=== PATIENT | female | born 1980 | race Two or more races ===

== ENCOUNTER 2023-02-06 08:54 | Outpatient (CLI) | payer SELFPAY | END 2023-02-06 08:55 | disposition home or self-care (01) | PROVIDERS: Visit Provider Family Medicine | DX: D64.9 Anemia, unspecified (principal); E66.01 Morbid (severe) obesity due to excess calories; R03.0 Elevated blood-pressure reading, without diagnosis of hypertension; R79.89 Other specified abnormal findings of blood chemistry; R53.83 Other fatigue | CPT/HCPCS: 80053; 82607; 82728 ==

== ENCOUNTER 2023-02-06 09:43 | Outpatient (CLI) | payer SELFPAY ==
--- NOTE | 2023-02-06 10:15 | CRLHL7_ITS ---
For Patients: As a result of the Century Cures Act, medical imaging exams and procedure reports are released immediately into your electronic medical record. You may view this report before your referring provider. If you have questions, please contact your health care provider. INDICATION: Soft tissue Disorder TECHNIQUE: Ultrasound venous duplex lower right extremity. Compression venous exam was performed using fregoso-scale, color Doppler, and spectral Doppler imaging. COMPARISON: None. FINDINGS: Sonographic imaging demonstrates the right common femoral, deep femoral, superficial femoral, popliteal, posterior tibial and greater saphenous and the contralateral left common femoral veins to be fully compressible with normal color Doppler blood flow. Within the mid calf there are small superficial varicose veins. IMPRESSION: Normal right lower extremity venous ultrasound, no sign of deep venous thrombosis. Minimal superficial varicosities within the calf veins. No evidence of significant superficial thrombophlebitis. Dictated by Sesar Clark MD @ 02/06/2023 10:59:25 AM (Electronically Signed)
== END 2023-02-06 09:44 | disposition home or self-care (01) ==
LOC: US 09:47
PROVIDERS: PCP Family Medicine; Visit Provider Family Medicine
DX: M79.89 Other specified soft tissue disorders (principal); I83.91 Asymptomatic varicose veins of right lower extremity
CPT/HCPCS: 93971

== ENCOUNTER 2023-06-09 15:26 | Outpatient (CLI) | payer OTHER, SELFPAY ==
--- OUTSIDE RECORDS SUMMARY | 2023-06-09 15:31 | XMS_ITS | Clinical Summary ---
Author Name Unknown Organization [employer] [facility] [employer] Address [place], [place] [address] Care Team Providers Care Patient Scheduling Manager Name Role Phone Pcp, No Primary Care Provider Unavailabl e Allergies Active Allergy Reactions Criticality Noted Date Comments Aspirin, Buffered Angioedema 08/18/2006 Penicillins Angioedema 11/17/2006 Medications No known medications Active Problems Problem Noted Date Diagnosed Date Vitamin D deficiency 08/13/2009 Unspecified hypothyroidism 08/18/2006 Resolved Problems Problem Noted Date Diagnosed Date Resolved Date Supervision of other normal 09/05/2009 07/18/2011 Routine follow-up 01/16/2007 08/29/2008 Immunizations Name Administration Dates Next Due Influenza, IIV3 (Age 6-35 mos) 02/01/2010 Influenza, IIV3 (Age >=3 years) 03/23/2013,02/01,03/10/2008,02/15/2006 Influenza, IIV4 04/21/2019 Tdap 04/21/2019,04/11/2008 Family History Medical History Relation Name Comments Good Health Father Diabetes Maternal Grandmother Good Health Mother Relation Name Status Comments Father Alive Maternal Grandmother Mother Alive Son 1 Mady Alive Son 2 Rafi Alive Social History Tobacco Use Types Packs/Day Years Used Date Smoking Tobacco: Former Cigarettes Q uit: 05/18/2005 Smokeless Tobacco: Never Tobacco Cessation:Counseling Given: Yes Alcohol Use Standard Drinks/Week Comments No 0 (1 standard drink = 0.6 oz pur e alcohol) PHQ-2 Answer Date Recorded PHQ-2 Score 1 04/21/2019 Social Connections Answer Date Recorded Frequency of Communication with Friends and Fami ly Not on file 05/18/2021 Financial Resource Strain Answer Date R ecorded Difficulty of Paying Living Expenses Not on file 05/18/2021 Difficulty of Paying Living Expenses Not on file 05/18/2021 Sex and Gender Information Value Date Recorded Sex Assigned at Not on file Gender Identity Not on file Sexual Orientation Not on file Obstetrics History Para Term AB IAB SAB Ectopic Multiple Livin g Live Births 4 3 3 3 3 Date Outcome GA Total Labor Labor/2nd/3rd Weight Sex Delivery Anes PTL Roselyn A1 A5 Name Cl in Comments:System Genera marycarmen. Please review and update details. 10/08 Term 38w 0d 5h 00m/ 4 kg (8 lb 13.1 oz) M Vag Shana ng mady 04/19 Term 38w 0d 5h 00m/ 3.49 kg (7 lb 11 oz) M Vag Shana ng carito david 11/24 Term 42w 0d 24h 00m/ F Vag Shana ng Tj la Last Filed Vital Signs Vital Sign Reading Time Taken Comments Blood Pressure 132/77 06/28/2020 10:09 AM PEST CONTROL SERVICE TECHNICIAN Pulse 76 06/28/2020 10:09 AM PEST CONTROL SERVICE TECHNICIAN Temperature 37.3 ??C (99.2 ??F) 06/28/2020 10:[address] Respiratory Rate - - Oxygen Saturation 100% 06/28/2020 10:09 AM PEST CONTROL SERVICE TECHNICIAN Inhaled Oxygen Concentration - - Weight 109.3 kg (241 lb) 06/28/2020 10:09 AM PEST CONTROL SERVICE TECHNICIAN Height 159.2 cm (5' 2.68) 04/21/2019 8:09 AM CS T Body Mass Index 43.13 04/21/2019 8:09 AM PEST CONTROL SERVICE TECHNICIAN Plan of Treatment Health Maintenance Due Date Last Done Comments COVID-19 vaccine series (#1) 01/08/1979 Hepatitis C screening for age 18-79 1996 BMI (ht and wt on same day) for age 18+ 04/21/2020 04/21/2019 Depression screening for age 12+ 04/21/2020 04/21/2019 Influenza for age 9-49 01/16/2023 9, 03/23/2013, 02/01/2010, Additional history exists Pap test for age 21-65 02/18/2028 3, 02/17/2023, 04/21/2019, Additional history exists Tetanus booster 04/21/2029 04/21/2019, 04/11/2008 HIV for age 15-65 Completed 08/21/2009 Tdap Completed 04/21/2019, 04/11/2008 Pneumococcal series for age 6-64 Aged Out No longer eligible based on patient's age to complete this topic Care Teams Patient Scheduling Manager Relationship Specialty Start Date End Date Pcp, No . PCP - General 10/06/21
--- NOTE | 2023-06-09 15:40 | CRLHL7_ITS ---
For Patients: As a result of the Century Cures Act, medical imaging exams and procedure reports are released immediately into your electronic medical record. You may view this report before your referring provider. If you have questions, please contact your health care provider. BILATERAL SCREENING MAMMOGRAM WITH COMPUTER-AIDED DETECTION AND TOMOSYNTHESIS TECHNIQUE: CC and MLO views were obtained. These mammographic images have been obtained using full-field digital technique. These mammographic images were interpreted with the benefit of computer-aided detection. Breast Tomosynthesis was used in this interpretation. COMPARISON FILM: 04/21/19. FINDINGS: There are scattered areas of fibroglandular density. IMPRESSION: There is no radiographic evidence for malignancy. ASSESSMENT: BI-RADS Category 1: Negative RECOMMENDATION: Routine screening mammogram in 1 year. A lay language report of this examination will be provided to the patient. Rubén Lopez M.D. Diagnostic Radiologist [email or web address] SP/Dictated by: Rubén Lopez MD @ 06/12/2023 12:04:00 PM (Electronically Signed)
== END 2023-06-09 15:27 | disposition home or self-care (01) ==
PROVIDERS: Visit Provider Advanced Practice Midwife
DX: Z12.31 Encounter for screening mammogram for malignant neoplasm of breast (principal)
CPT/HCPCS: 77063; 77067; T1013

== ENCOUNTER 2023-08-19 11:00 | Outpatient (CLI) | payer OTHER, SELFPAY | END 2023-08-19 11:01 | disposition home or self-care (01) | PROVIDERS: Visit Provider Obstetrics & Gynecology | DX: N92.0 Excessive and frequent menstruation with regular cycle (principal); Z13.29 Encounter for screening for other suspected endocrine disorder | CPT/HCPCS: 81001; 84439; 84443; 87086 ==

== ENCOUNTER 2023-08-27 13:04 | Outpatient (CLI) | payer OTHER, SELFPAY | END 2023-08-27 13:05 | disposition home or self-care (01) | PROVIDERS: PCP Obstetrics & Gynecology; Visit Provider Obstetrics & Gynecology | DX: R79.89 Other specified abnormal findings of blood chemistry (principal) | CPT/HCPCS: 84439; 84443 ==

== ENCOUNTER 2023-12-15 10:35 | Outpatient (CLI) | payer OTHER, SELFPAY ==
--- OUTSIDE RECORDS SUMMARY | 2023-12-15 10:49 | XMS_ITS | Clinical Summary ---
Author Organization [employer] [facility] Address [place], [place] [address] Care Team Providers Care Block Paver Name Role Phone Pcp, No Primary Care [...] Outcome GA Total Labor Labor/2nd/3rd Weight Sex Type Anes PTL Roselyn A1 A5 Name Clin Comments:System Genera marycarmen. Please review and update details. 000 Term 38w 0d 5h 00m/ 4 kg (8 lb 13.1 oz) M Vag Livin g mady 002 Term 38w 0d 5h 00m/ 3.49 kg (7 lb 11 oz) M Vag Livin g gabrie l 007 Term 42w 0d 24h 00m/ F Vag Livin g Camill a Last Filed Vital Signs Vital Sign Reading Time Taken Comments Blood Pressure 132/77 06/28/2020 10:09 AM JIG OPERATOR Pulse 76 06/28/2020 10:09 AM JIG OPERATOR Temperature 37.3 ??C (99.2 ??F) 06/28/2020 10:[address] Respiratory Rate - - Oxygen Saturation 100% 06/28/2020 10:09 AM JIG OPERATOR Inhaled Oxygen Concentration - - Weight 109.3 kg (241 lb) 06/28/2020 10:09 AM JIG OPERATOR Height 159.2 cm (5' 2.68) 04/21/2019 8:09 AM CS T Body Mass Index 43.13 04/21/2019 8:09 AM JIG OPERATOR Plan of Treatment Health Maintenance Due Date Last Done Comments Hepatitis C screening for age 18-79 1996 BMI (ht and wt on same day) for age 18+ 04/21/2020 04/21/2019 Depression screening for age 12+ 04/21/2020 04/21/2019 COVID-19 vaccine series ( season) 2023 Colonoscopy through age 75 2023 Mammogram for age 45-75 2023 04/21/2019 Influenza for age 9-49 01/17/2024 9, 03/23/2013, 02/01/2010, Additional history exists Lipids for age 45-75 04/21/2024 04/21/2019, 05/20/2013, 01/09/2009, Additional history exists Pap test for age 21-65 02/18/2028 3, 02/17/2023, 04/21/2019, Additional history exists Tetanus booster 04/21/2029 04/21/2019, 04/11/2008 HIV for age 15-65 Completed 08/21/2009 Tdap Completed 04/21/2019, 04/11/2008 Pneumococcal series for age 6-64 Aged Out No longer eligible based on patient's age to complete this topic Procedures Procedure Name Priority Date/Time Associated Diagnosis Comments HPV THIN PREP Routine 02/17/2023 1:45 PM CDT XR MAMMO TOMY BILAT DIAG Routine 04/21/2019 2:26 PM JIG OPERATOR Breast pain, right Breast lump LIPID PANEL W REFLEX MEASURED LDL Routine 04/21/2019 8:45 AM JIG OPERATOR Screening for lipid disorders ANTI HIV 1/2 Routine 08/21/2009 10:31 AM CDT Supervision of other normal from Last 3 Months or Most Recently Relevant to Health Maintenance Results * HPV HIGH RISK (02/17/2023 1:45 PM CDT) TYPE 16 Negative Negative 02/21/2023 7:05 AM CDT [facility] LAB[facility] TYPE 18 Negative Negative 02/21/2023 7:05 AM CDT [facility] LAB[facility]ORY OTHER HIGH RISK TYPES Negative Negative 02/21/2023 7:05 AM CDT [facility] TR[facility] LAB[facility]ORY Other (Cervical) 02/17/2023 1:45 PM CDT 02/18/2023 4:24 PM CDT Narrative [facility] LAB[facility]-CENTRAL LABORATORY - 02/21/2023 7:05 AM CDT HPV types 16, 18, 31, 33, 35, 39, 45, 51, 52, 56, 58, 59, 66 and 68 DNA were undetectable or below the pre-set threshold. Methodology: Lisa Darcie 4800 HPV Test Jenniffer MURPHY MICROBIOLOGY [facility] LAB[facility]-CENTRAL LABORATORY [address] [place] [address], [place] * XR MAMMO TOMY BILAT DIAG (04/21/2019 2:26 PM JIG OPERATOR) Anatomical Region Laterality Modality BREASTS, Breast Left, Breast Right Bilateral Mammography Impressions 04/25/2019 9:48 AM JIG OPERATOR No mammographic or sonographic findings for malignancy. Further management of the patient's breast pain and lump should be based clinically. Results and recommendations were discussed with the patient via an lieutenant shift supervisor. BI-RADS Category 2: Benign Dictated by: Flakita Orozco MD @04/21/2019 3:18:43 PM / CRL:[email or web address] Narrative 04/25/2019 9:48 AM JIG OPERATOR DIGITAL DIAGNOSTIC BILATERAL MAMMOGRAM USING TOMOSYNTHESIS, 04/21/2019 RIGHT BREAST ULTRASOUND, 04/21/2019 HISTORY: RIGHT lump and pain. FINDINGS: Breast density is scattered fibroglandular densities. ??No suspicious masses or calcification. ?? Ultrasound performed of the RIGHT breast 11 o'clock position and surrounding breast tissue demonstrates normal underlying glandular tissue. Julissa Go PA MAMMO * LIPID PANEL W REFLEX MEASURED LDL (04/21/2019 8:45 AM JIG OPERATOR) CHOLESTEROL,TOTAL 173 100 - 199 mg/dL 04/21/2019 2:34 PM JIG OPERATOR [facility] LABORATORY-[facility] TRAL LABORATORY TRIGLYCERIDES 106 <150 mg/dL 04/21/2019 2:34 PM JIG OPERATOR [facility] HDL CHOLESTEROL 52 >40 mg/dL 9 2:34 PM JIG OPERATOR [facility] TRAL LABORATORY NON-HDL CHOLESTEROL 121 <145 mg/dl 04/21/2019 2:34 PM JIG OPERATOR [facility] TRAL LABORATORY CHOL/HDL RATIO 3.33 <4.50 04/21/2019 2:34 PM [facility] TRAL LABORATORY LDL CHOLESTEROL 100 <=130 mg/dL 04/21/2019 2:34 PM [facility] TRAL LABORATORY PROVIDER ORDERED STATUS RANDOM 04/21/2019 2:34 PM JIG OPERATOR [facility] TRAL LABORATORY Blood BLOOD SPECIMEN / Unknown Venipuncture / Unknown 04/21/2019 8:45 AM JIG OPERATOR 04/21/2019 8:49 AM JIG OPERATOR Julissa MILLAN CHEMISTRY [facility] LABORATORY-CENTRAL LABORATORY [address] [place] [address], * HIV (08/21/2009 10:31 AM CDT) ANTI HIV 1/2 Non-reacti ve [facility] Blood specimen (specimen) BLOOD SPECIMEN / Unknown 08/21/2009 10:31 AM CDT 08/21/2009 10:25 AM CDT Darshana Gardiner NP SEND OUTS [facility] LABORATORY INTERNAL ZIP [address] [place] [address] from Last 3 Months or Most Recently Relevant to Health Maintenance Care Teams Block Paver Relationship Specialty Start Date End Date Pcp, No . PCP - General 10/06/21
== END 2023-12-15 10:36 | disposition home or self-care (01) ==
PROVIDERS: Visit Provider Obstetrics & Gynecology
DX: D64.9 Anemia, unspecified (principal); E66.01 Morbid (severe) obesity due to excess calories; R30.0 Dysuria; N93.9 Abnormal uterine and vaginal bleeding, unspecified
CPT/HCPCS: 84439; 84443; 86376; 87086

== ENCOUNTER 2024-01-19 08:24 | Outpatient (CLI) | payer OTHER, SELFPAY ==
--- OUTSIDE RECORDS SUMMARY | 2024-01-20 05:54 | XMS_ITS | Clinical Summary ---
Author Organization [email or web address] [facility] Address [place], [place] [address] Care Team Providers Care Classification Counselor Name Role Phone Pcp, No Primary Care [...] Comments Blood Pressure 132/77 06/28/2020 10:09 AM CAD SPECIALIST Pulse 76 06/28/2020 10:09 AM CAD SPECIALIST Temperature 37.3 ??C (99.2 ??F) 06/28/2020 10:[address] Respiratory Rate - - Oxygen Saturation 100% 06/28/2020 10:09 AM CAD SPECIALIST Inhaled Oxygen Concentration - - Weight 109.3 kg (241 lb) 06/28/2020 10:09 AM CAD SPECIALIST Height 159.2 cm (5' 2.68) 04/21/2019 8:09 AM CS T Body Mass Index 43.13 04/21/2019 8:09 AM CAD SPECIALIST Plan of Treatment Health Maintenance Due Date [...] TOMY BILAT DIAG Routine 04/21/2019 2:26 PM CAD SPECIALIST Breast pain, right Breast lump LIPID PANEL W REFLEX MEASURED LDL Routine 04/21/2019 8:45 AM CAD SPECIALIST Screening for lipid disorders ANTI HIV 1/2 Routine 08/21/2009 10:31 AM CDT Supervision of other normal from Last 3 Months or Most Recently Relevant to Health Maintenance Results * HPV HIGH RISK (02/17/2023 1:45 PM CDT) TYPE 16 Negative Negative 02/21/2023 7:05 AM CDT [facility] TR[facility] LABORATORY TYPE 18 Negative Negative 02/21/2023 7:05 AM CDT [facility] TRAL LABORATORY OTHER HIGH RISK TYPES Negative Negative 02/21/2023 7:05 AM CDT [facility] TRAL LABORATORY Other (Cervical) 02/17/2023 1:45 PM CDT 02/18/2023 4:24 PM CDT Narrative [facility] LABORATORY-CENTRAL LABORATORY - 02/21/2023 7:05 AM CDT HPV types 16, 18, 31, 33, 35, 39, 45, 51, 52, 56, 58, 59, 66 and 68 DNA were undetectable or below the pre-set threshold. Methodology: Lisa Darcie 4800 HPV Test Jenniffer MURPHY MICROBIOLOGY [facility] LAB[facility]-CENTRAL LABORATORY [address] [place] [address], [place] * XR MAMMO TOMY BILAT DIAG (04/21/2019 2:26 PM CAD SPECIALIST) Anatomical Region Laterality Modality BREASTS, Breast Left, Breast Right Bilateral Mammography Impressions 04/25/2019 9:48 AM CAD SPECIALIST No mammographic or sonographic findings for malignancy. Further management of the patient's breast pain and lump should be based clinically. Results and recommendations were discussed with the patient via an hourly sign language interpreter. BI-RADS Category 2: Benign Dictated by: Flakita Orozco MD @04/21/2019 3:18:43 PM / CRL:elio Narrative 04/25/2019 9:48 AM CAD SPECIALIST DIGITAL DIAGNOSTIC BILATERAL MAMMOGRAM USING TOMOSYNTHESIS, 04/21/2019 RIGHT BREAST ULTRASOUND, 04/21/2019 HISTORY: RIGHT lump and pain. FINDINGS: Breast density is scattered fibroglandular densities. ??No suspicious masses or calcification. ?? Ultrasound performed of the RIGHT breast 11 o'clock position and surrounding breast tissue demonstrates normal underlying glandular tissue. Julissa Go PA MAMMO * LIPID PANEL W REFLEX MEASURED LDL (04/21/2019 8:45 AM CAD SPECIALIST) CHOLESTEROL,TOTAL 173 100 - 199 mg/dL 04/21/2019 2:34 PM CAD SPECIALIST [facility] LABORATORY-[facility] TRAL LABORATORY TRIGLYCERIDES 106 <150 mg/dL 04/21/2019 2:34 PM CAD SPECIALIST [facility] HDL CHOLESTEROL 52 >40 mg/dL 9 2:34 PM CAD SPECIALIST [facility] TRAL LABORATORY NON-HDL CHOLESTEROL 121 <145 mg/dl 04/21/2019 2:34 PM CAD SPECIALIST [facility] TRAL LABORATORY CHOL/HDL RATIO 3.33 <4.50 04/21/2019 2:[address] [facility] TRAL LABORATORY LDL CHOLESTEROL 100 <=130 mg/dL 04/21/2019 2:[address] [facility] TRAL LABORATORY PROVIDER ORDERED STATUS RANDOM 04/21/2019 2:34 PM CAD SPECIALIST [facility] TRAL LABORATORY Blood BLOOD SPECIMEN / Unknown Venipuncture / Unknown 04/21/2019 8:45 AM CAD SPECIALIST 04/21/2019 8:49 AM CAD SPECIALIST Julissa MILLAN CHEMISTRY [facility] LABORATORY-CENTRAL LABORATORY [address] [place] [address], * HIV (08/21/2009 10:31 AM CDT) ANTI HIV 1/2 Non-reacti ve [facility] Blood specimen (specimen) BLOOD SPECIMEN / Unknown 08/21/2009 10:31 AM CDT 08/21/2009 10:25 AM CDT Darshana Gardiner NP SEND OUTS [facility] LABORATORY INTERNAL ZIP [address] [place] [address] from Last 3 Months or Most Recently Relevant to Health Maintenance Care Teams Classification Counselor Relationship Specialty Start Date End Date Pcp, No . PCP - General 10/06/21
== END 2024-01-19 08:25 | disposition home or self-care (01) ==
LOC: NFLDREF 01-20 05:52
PROVIDERS: Visit Provider Obstetrics & Gynecology
DX: E03.9 Hypothyroidism, unspecified (principal)
CPT/HCPCS: 84443

== ENCOUNTER 2024-01-21 09:22 | Outpatient (CLI) | payer OTHER, SELFPAY ==
--- OUTSIDE RECORDS SUMMARY | 2024-01-21 09:30 | XMS_ITS | Data Portability ---
Author Organization [facility] Address [address] [place] [address] [place] [address] Assessment Encounter Date Assessment Date Assessment LastModified by Organization Details LastModified Time 03/12/2023 03/12/2023 1. Anemia - check FOBT - pelvic ultrasound (menorrhagia most likely source), plan pending results - continue iron supplementation 2. Skin lesion - will obtain pathology records from recent biopsy, plan pending these results [email or web address] Not available 03/12/2023 12:14:02 06/25/2023 06/25/2023 - trial of Terbinafine for onychomycosis - A1C given risk factors - repeat Hgb - recommend daily walks for circulation and weight management - Gynecology referral for thickened endometrium, polyp + menorrhagia/anemia - repeat FOBT in 6 months when NOT menstruating chintan Not available 06/25/2023 14:02:36 Plan of Treatment Reminders Order Date Submit Date Provider Last Modified By Organization Details Last Modified Time Details Appointments None recorde d. Lab magnesi um, serum or plasma 2022 023 TRISTEN Not available 4 00:38:36 CBC w/ auto diff 2023 024 TRISTEN Not available 4 15:41:04 HbA1c (hemogl obin A1c), blood 2023 024 TRISTEN Not available 4 15:42:15 Referral communi health worker georgie mak 2023 024 [email or web address] Not available 4 09:01:36 gynecol ogist georgie mak - Dr. Ellen gonzalez at [facility] please 2023 024 Not available 4 17:04:38 Procedures None recorde d. Surgeries None recorde d. Imaging US, pelvis, complet e 2022 023 TRISTEN Not available 4 00:44:54 Medication Orders terbina fine HCl 250 mg tablet 2023 024 [email or web address] Not available 4 16:32:10 Patient TargetsNo targets recorded. Patient InstructionsNo instructions recorded. Reason for Referral Chief Lending Officer Referral for Ab normal uterine bleeding due to endometrial polyp Referring Physician: Clarissa Bustillos [facility], Encounter Date: 03/31/2023 Community Health Worker Refe rral for Increased blood pressure Referring Physician: Clarissa Bustillos [facility], Encounter Date: 06/25/2023 Chief Lending Officer Referral for En dometrium thickened Dr. Rosario at [facility] please Referring Physician: Clarissa Bustillos [facility], Encounter Date: 06/25/2023 Results Created Date Observation Date Name Description Value Unit Range Abnormal Flag Note LastModifiedBy Organization Detail LastModifiedTime 06/05/19 24 03/16/2023 , mylene carrizales ete No observ ation record ed. [email or web address] Not Available 00:45:09 Result Notes None recorded. Problems Name Problem SNOMED Code Status Onset Date Resolution Date Notes Provider Name and Address Organization Details Recorded Time Microcytic anemia 415913493 Active 2023 Clarissa Bustillos MD [address] [facility] [place], [address], [employer] 4 11:30:55 Onychomycosis 616027858 Active 2023 MD Giorgio Ramirez [facility] [place], [address], Happy [employer] 4 11:31:19 Increased blood pressure 73901399 Active 2023 MD Giorgio Ramirez [facility] [place], [address], [place] [employer] 4 11:32:33 Endometrium thickened 027707816 Active 2023 [place] [address] [place] [address], [address], [facility] 4 11:32:50 Problem Notes None recorded. Procedures Surgical History Date Name Laterality Status Provider Name and Address Organization Details Recorded Time 0 Tubal [place] [address] [place] [address], [address], [facility] 03/12/2023 11:43:06 Imaging Results Imaging Date Name Status LastModified by Organiz ation Details LastModified Time 03/16/2023 US, pelvis, complete completed [email or web address] Information not available 06/05/2023 00:45:09 Procedure Notes None recorded. Medical Equipment None Reported. Medications Name Sig Start Date Stop Date Status Note LastModified by Organization Details LastModified Time terbinafine HCl 250 mg tablet TAKE ONE TABLET BY MOUTH EVERY DAY active Not Available Not Available No t Available Vitals Date Recorded Body weight Body mass index (BMI) Body height Body temperature Respiratory rate Heart rate Oxygen saturation Oxygen saturation in Arterial blood by Pulse oximetry Systolic blood pressure Diastolic blood pressure Provider Name and Address Organization Details Last Updated DateTime 3 567104. 1 g 38.3 kg/m2 162.56 cm 97.5 [degF] 22 /min 74 /min 98 % 98 % 141 mm[Hg] 78 mm[Hg] [facility]nott [facility] 3 11:33:09 Date Recorded Body height Body mass index (BMI) Body weight Heart rate Systolic blood pressure Diastolic blood pressure Provider Name and Address Organization Details Last Updated DateTime 4 162.56 cm 41.7 kg/m2 464579. 95 g 79 /min 134 mm[Hg] 85 mm[Hg] Clarissa Bustillos MD [address] [place], [address], [facility] 4 13:50:47 Social History Question Answer Notes LastModified by Organizat ion Details LastModified Time Tobacco Smoking Status Never Smoker Clarissa Bustillos MD [address] [place], [address], [facility] 03/12/2023 12:05:20 What Is Your Level Of Alcohol Consumption? None Information not available 03/12/2023 Are You Currently Employed? Yes Information not available 03/12/2023 What Is Your Occupation? [employer] Information not available 03/12/2023 Sex: Unknown Functional Status None recorded. Mental Status None recorded. Family History Relationship Description Onset Age of this Age Resolved Age Notes Father No current problems or disability Mother No current problems or disability Medical History Condition Response Anemia Y Gynecological History Statement/Question Response Menses Monthly Y Duration of Flow (days) 5 Flow Heavy Date of LMP 03/01/2023 LMP Approximate Obstetrics History GPAL:G 4 P 4 0 0 4 Type Value Multiple Births 0 Full Term 4 Induced 0 Spontaneous 0 Premature 0 Living 4 Ectopics 0 Total 4 Past Encounters Encounter ID Performer Location Encounter Start Date Encounter Closed Date Diagnosis/Indication Diagnosis SNOMED-CT Code Diagnosis ICD10 Code [id number] Clarissa [facility]ustillos [facility] [address] [place] [address] 03/12/2023 11:25:18 03/12/2023 12:10:57 Microcytic anemia 972266980 D50.9 [id number] Clarissa Bustillos MD [facility] [address] [place] [address] 06/25/2023 10:56:22 06/25/2023 16:24:16 Onychomycosis of toenails 937495627 B35.1 Diabetes m ellitus screening 698547739 Z13.1 Microcytic anemia 556661 007 D50.9 Endometrium thickened 44 2373238 R93.89 Increased blood pressure 78494671 R03.0 Health Concerns Section Related Observation LastModified by Organization Detai ls LastModified Time None Recorded Concern Status LastModified by Organization Details LastModified Time None Recorded Advance Directives Directive None Recorded Payers Encounter Date Sequence Insurance Name Policy Number Policy Ogden Covered Member ID [place]den Member ID Guarantor Name 03/12/2023 SLIDING FEE SCHEDULE - DISCOUNT Stacy White 06/25/2023 SLIDING FEE SCHEDULE - DISCOUNT Stacy White Notes Date Note Type Note Provider Name and Address Organization Details Recorded Time 03/12/2023 text/html HPI Notes: Stacy presents to establish care today. Concerns: 1. Anemia, noted on recent screening labs at the hospital. Hgb 9.7 with MCV of 68. Normal renal function and liver function, normal electrolytes. On supplemental iron without significant side effects. Energy level is good/baseline. No CP, no dizziness, no dyspnea, no weakness. History of heavy menses, LMP 10/15, typically has a 5 day menstrual cycle. 2. Skin lesion R medial malleolus, present for approximately 7 months. Started as a small hyperpigmented lesion, then grew over time. No pain, no h/o trauma, + itching. Had a biopsy with Dr. Coreas of General Surgery (I don't have pathology results). Known LE varicosities. No claudication. Clarissa Bustillos MD [address] [place], [address], [facility] [employer] 03/12/2023 12:16:05 06/25/2023 text/html HPI Notes: Stacy is in for followup. I saw her this fall for an anemia workup. She had a thickened endometrium + polyp on pelvic ultrasound (h/o menorrhagia), also had a + FOBT but unclear if this was a contaminated sample. No constipation, no abdominal pain. Still having monthly menses, intermittently heavy. Taking iron daily, still intermittently feels tired. Would like to trial medication for chronic onychmycosis, primarily R great toenail. No changes to skin lesion on R medial malleolus (present for >1 year, biopsied by Dr. Coreas of General Surgery last fall, pathology c/w chronic venous stasis and lipodermatosclerosis ). Clarissa Bustillos MD [address] [place], [address], [facility] [employer] 06/25/2023 14:03:12 OBGyn Episode No OBEpisode recorded.
--- OUTSIDE RECORDS SUMMARY | 2024-01-21 09:30 | XMS_ITS | Clinical Summary ---
Author Organization [facility] Address [place], [place] [address] Care Team Providers Care Radio Frequency Design Engineer Name Role Phone Pcp, No Primary Care [...] Comments Blood Pressure 132/77 06/28/2020 10:09 AM SAP HANA ARCHITECT Pulse 76 06/28/2020 10:09 AM SAP HANA ARCHITECT Temperature 37.3 ??C (99.2 ??F) 06/28/2020 10:[address] Respiratory Rate - - Oxygen Saturation 100% 06/28/2020 10:09 AM SAP HANA ARCHITECT Inhaled Oxygen Concentration - - Weight 109.3 kg (241 lb) 06/28/2020 10:09 AM SAP HANA ARCHITECT Height 159.2 cm (5' 2.68) 04/21/2019 8:09 AM CS T Body Mass Index 43.13 04/21/2019 8:09 AM SAP HANA ARCHITECT Plan of Treatment Health Maintenance Due Date Last Done Comments Hepatitis C screening for age 18-79 1996 BMI (ht and wt on same day) for age 18+ 04/21/2020 04/21/2019 Depression screening for age 12+ 04/21/2020 04/21/2019 Colonoscopy through age 75 2023 Mammogram for age 45-75 2023 04/21/2019 COVID-19 vaccine series ( season) 2024 Influenza for age 9-49 01/17/2024 9, 03/23/2013, [...] TOMY BILAT DIAG Routine 04/21/2019 2:26 PM SAP HANA ARCHITECT Breast pain, right Breast lump LIPID PANEL W REFLEX MEASURED LDL Routine 04/21/2019 8:45 AM SAP HANA ARCHITECT Screening for lipid disorders ANTI HIV 1/2 Routine 08/21/2009 10:31 AM CDT Supervision of other normal from Last 3 Months or Most Recently Relevant to Health Maintenance Results * HPV HIGH RISK (02/17/2023 1:45 PM CDT) TYPE 16 Negative Negative 02/21/2023 7:05 AM CDT [facility] TYPE 18 Negative Negative 02/21/2023 7:05 AM CDT [facility] OTHER HIGH RISK TYPES Negative Negative 02/21/2023 7:05 AM CDT [facility] TR[facility] LAB[facility] Other (Cervical) 02/17/2023 1:45 PM CDT 02/18/2023 4:24 PM CDT Narrative [facility] LABORATORY-CENTRAL LABORATORY - 02/21/2023 7:05 AM CDT HPV types 16, 18, 31, 33, 35, 39, 45, 51, 52, 56, 58, 59, 66 and 68 DNA were undetectable or below the pre-set threshold. Methodology: Lisa Darcie 4800 HPV Test Jenniffer MURPHY MICROBIOLOGY [facility] LABORATORY-CENTRAL LABORATORY [address] [place] [address], [place] * XR MAMMO TOMY BILAT DIAG (04/21/2019 2:26 PM SAP HANA ARCHITECT) Anatomical Region Laterality Modality BREASTS, Breast Left, Breast Right Bilateral Mammography Impressions 04/25/2019 9:48 AM SAP HANA ARCHITECT No mammographic or sonographic findings for malignancy. Further management of the patient's breast pain and lump should be based clinically. Results and recommendations were discussed with the patient via an ham doctor. BI-RADS Category 2: Benign Dictated by: Flakita Orozco MD @04/21/2019 3:18:43 PM / CRL:elio Narrative 04/25/2019 9:48 AM SAP HANA ARCHITECT DIGITAL DIAGNOSTIC BILATERAL MAMMOGRAM USING TOMOSYNTHESIS, 04/21/2019 RIGHT BREAST ULTRASOUND, 04/21/2019 HISTORY: RIGHT lump and pain. FINDINGS: Breast density is scattered fibroglandular densities. ??No suspicious masses or calcification. ?? Ultrasound performed of the RIGHT breast 11 o'clock position and surrounding breast tissue demonstrates normal underlying glandular tissue. Julissa Go PA MAMMO * LIPID PANEL W REFLEX MEASURED LDL (04/21/2019 8:45 AM SAP HANA ARCHITECT) CHOLESTEROL,TOTAL 173 100 - 199 mg/dL 04/21/2019 2:34 PM SAP HANA ARCHITECT [facility] [employer] LAB[facility]ATORY[facility] TRAL LAB[facility] TRIGLYCERIDES 106 <150 mg/dL 04/21/2019 2:34 PM SAP HANA ARCHITECT [facility] HDL CHOLESTEROL 52 >40 mg/dL 9 2:34 PM SAP HANA ARCHITECT [facility] TRAL LAB[facility] NON-HDL CHOLESTEROL 121 <145 mg/dl 04/21/2019 2:34 PM SAP HANA ARCHITECT [facility] TRAL LAB[facility]ORY CHOL/HDL RATIO 3.33 <4.50 04/21/2019 2:34 PM [facility] TRAL LABORATORY LDL CHOLESTEROL 100 <=130 mg/dL 04/21/2019 2:34 PM [facility] TRAL LABORATORY PROVIDER ORDERED STATUS RANDOM 04/21/2019 2:34 PM SAP HANA ARCHITECT [facility] TRAL LAB[facility]ORY Blood BLOOD SPECIMEN / Unknown Venipuncture / Unknown 04/21/2019 8:45 AM SAP HANA ARCHITECT 04/21/2019 8:49 AM SAP HANA ARCHITECT Julissa MILLAN CHEMISTRY [facility] LABORATORY-CENTRAL LABORATORY [address] [place] [address], * HIV (08/21/2009 10:31 AM CDT) ANTI HIV 1/2 Non-reacti ve [facility] Blood specimen (specimen) BLOOD SPECIMEN / Unknown 08/21/2009 10:31 AM CDT 08/21/2009 10:25 AM CDT Darshana Gardiner NP SEND OUTS [facility]ORY [place] ZIP [address] [place] [address] from Last 3 Months or Most Recently Relevant to Health Maintenance Care Teams Radio Frequency Design Engineer Relationship Specialty Start Date End Date Pcp, No . PCP - General 10/06/21
== END 2024-01-21 09:23 | disposition home or self-care (01) ==
LOC: OP CLINIC 09:28
PROVIDERS: PCP Family Medicine; Visit Provider Surgery
DX: Z53.8 Procedure and treatment not carried out for other reasons (principal)

== ENCOUNTER 2024-01-22 11:25 | Outpatient (CLI) | payer OTHER, SELFPAY ==
--- OUTSIDE RECORDS SUMMARY | 2024-01-22 11:28 | XMS_ITS | Clinical Summary ---
Author Organization [facility] Address [place], [place] [address] Care Team Providers Care Vat House Laborer Name Role Phone Pcp, No Primary Care [...] Comments Blood Pressure 132/77 06/28/2020 10:09 AM PROGRESS DEVELOPER Pulse 76 06/28/2020 10:09 AM PROGRESS DEVELOPER Temperature 37.3 ??C (99.2 ??F) 06/28/2020 10:[address] Respiratory Rate - - Oxygen Saturation 100% 06/28/2020 10:09 AM PROGRESS DEVELOPER Inhaled Oxygen Concentration - - Weight 109.3 kg (241 lb) 06/28/2020 10:09 AM PROGRESS DEVELOPER Height 159.2 cm (5' 2.68) 04/21/2019 8:09 AM CS T Body Mass Index 43.13 04/21/2019 8:09 AM PROGRESS DEVELOPER Plan of Treatment Health Maintenance Due Date [...] TOMY BILAT DIAG Routine 04/21/2019 2:26 PM PROGRESS DEVELOPER Breast pain, right Breast lump LIPID PANEL W REFLEX MEASURED LDL Routine 04/21/2019 8:45 AM PROGRESS DEVELOPER Screening for lipid disorders ANTI HIV 1/2 Routine 08/21/2009 10:31 AM CDT Supervision of other normal from Last 3 Months or Most Recently Relevant to Health Maintenance Results * HPV HIGH RISK (02/17/2023 1:45 PM CDT) TYPE 16 Negative Negative 02/21/2023 7:05 AM CDT [facility] LAB[facility] TYPE 18 Negative Negative 02/21/2023 7:05 AM CDT [facility] TRAL LABOR[facility]ORY OTHER HIGH RISK TYPES Negative Negative 02/21/2023 7:05 AM CDT [facility] TR[facility] LABORATORY Other (Cervical) 02/17/2023 1:45 PM CDT 02/18/2023 4:24 PM CDT Narrative [facility] LABORATORY-CENTRAL LABORATORY - 02/21/2023 7:05 AM CDT HPV types 16, 18, 31, 33, 35, 39, 45, 51, 52, 56, 58, 59, 66 and 68 DNA were undetectable or below the pre-set threshold. Methodology: Lisa Darcie 4800 HPV Test Jenniffer MURPHY MICROBIOLOGY [facility] LABORATORY-CENTRAL LABORATORY [address] [place] [address], [place] * XR MAMMO TOMY BILAT DIAG (04/21/2019 2:26 PM PROGRESS DEVELOPER) Anatomical Region Laterality Modality BREASTS, Breast Left, Breast Right Bilateral Mammography Impressions 04/25/2019 9:48 AM PROGRESS DEVELOPER No mammographic or sonographic findings for malignancy. Further management of the patient's breast pain and lump should be based clinically. Results and recommendations were discussed with the patient via an bell tier. BI-RADS Category 2: Benign Dictated by: Flakita Orozco MD @04/21/2019 3:18:43 PM / CRL:elio Narrative 04/25/2019 9:48 AM PROGRESS DEVELOPER DIGITAL DIAGNOSTIC BILATERAL MAMMOGRAM USING TOMOSYNTHESIS, 04/21/2019 RIGHT BREAST ULTRASOUND, 04/21/2019 HISTORY: RIGHT lump and pain. FINDINGS: Breast density is scattered fibroglandular densities. ??No suspicious masses or calcification. ?? Ultrasound performed of the RIGHT breast 11 o'clock position and surrounding breast tissue demonstrates normal underlying glandular tissue. Julissa Go PA MAMMO * LIPID PANEL W REFLEX MEASURED LDL (04/21/2019 8:45 AM PROGRESS DEVELOPER) CHOLESTEROL,TOTAL 173 100 - 199 mg/dL 04/21/2019 2:34 PM PROGRESS DEVELOPER [facility] [employer] LAB[facility]ATORY[facility] TRAL LABORATORY TRIGLYCERIDES 106 <150 mg/dL 04/21/2019 2:34 PM PROGRESS DEVELOPER [facility] HDL CHOLESTEROL 52 >40 mg/dL 9 2:34 PM PROGRESS DEVELOPER [facility] TRAL LABORATORY NON-HDL CHOLESTEROL 121 <145 mg/dl 04/21/2019 2:34 PM PROGRESS DEVELOPER [facility] TRAL LABORATORY CHOL/HDL RATIO 3.33 <4.50 04/21/2019 2:34 PM [facility] TRAL LABORATORY LDL CHOLESTEROL 100 <=130 mg/dL 04/21/2019 2:34 PM [facility] TRAL LABORATORY PROVIDER ORDERED STATUS RANDOM 04/21/2019 2:34 PM PROGRESS DEVELOPER [facility] TRAL LABORATORY Blood BLOOD SPECIMEN / Unknown Venipuncture / Unknown 04/21/2019 8:45 AM PROGRESS DEVELOPER 04/21/2019 8:49 AM PROGRESS DEVELOPER Julissa MILLAN CHEMISTRY [facility] LABORATORY-CENTRAL LABORATORY [address] [place] [address], * HIV (08/21/2009 10:31 AM CDT) ANTI HIV 1/2 Non-reacti ve [facility] Blood specimen (specimen) BLOOD SPECIMEN / Unknown 08/21/2009 10:31 AM CDT 08/21/2009 10:25 AM CDT Darshana Gardiner NP SEND OUTS [facility] [place] ZIP [address] [place] [address] from Last 3 Months or Most Recently Relevant to Health Maintenance Care Teams Vat House Laborer Relationship Specialty Start Date End Date Pcp, No . PCP - General 10/06/21
--- OUTSIDE RECORDS SUMMARY | 2024-01-22 11:28 | XMS_ITS | Data Portability ---
Author Organization [facility] Address [address] [place] [address] [place] [address] Assessment Encounter Date Assessment Date Assessment LastModified [...] communi health worker georgie mak 2023 024 [email or web address] Not available 4 09:01:36 gynecol ogist georgie mak - Dr. Ellen gonzalez at [facility] please 2023 024 Not available 4 17:04:38 Procedures None recorde d. Surgeries None recorde d. Imaging US, pelvis, complet e 2022 023 TRISTEN Not available 4 00:44:54 Medication Orders terbina fine HCl 250 mg tablet 2023 024 [email or web address] Not available 4 16:32:10 Patient TargetsNo targets recorded. Patient InstructionsNo instructions recorded. Reason for Referral Chain Testing Machine Operator Referral for Ab normal uterine bleeding due to endometrial polyp Referring Physician: Clarissa Bustillos [facility], Encounter Date: 03/31/2023 Community Health Worker Refe rral for Increased blood pressure Referring Physician: Clarissa Bustillos [facility], Encounter Date: 06/25/2023 Chain Testing Machine Operator Referral for En dometrium thickened Dr. Rosario at [facility] please Referring Physician: Clarissa Bustillos [facility], Encounter Date: 06/25/2023 Results Created Date Observation Date Name Description Value Unit Range Abnormal Flag Note LastModifiedBy Organization Detail LastModifiedTime 06/05/19 24 03/16/2023 , mylene carrizales ete No observ ation record ed. [email or web address] Not Available 00:45:09 Result Notes None recorded. Problems Name Problem SNOMED Code Status Onset Date Resolution Date Notes Provider Name and Address Organization Details Recorded Time Microcytic anemia 693375376 Active 2023 Clarissa Bustillos MD [address] [facility] [place], [address], [employer] 4 11:30:55 Onychomycosis 032193209 Active 2023 MD Giorgio Ramirez [place], [address], [employer] 4 11:31:19 Increased blood pressure 73833028 Active 2023 MD Giorgio Ramirez [place], [address], [place] [employer] 4 11:32:33 Endometrium thickened 604803169 Active 2023 [place] [address] [place] [address], [address], [facility] 4 11:32:50 Problem Notes None recorded. Procedures Surgical History Date Name Laterality Status Provider Name and Address Organization Details Recorded Time 0 Tubal [place] [address] [place] [address], [address], [facility] 03/12/2023 11:43:06 Imaging Results Imaging [...] Address Organization Details Last Updated DateTime 3 595150. 1 g 38.3 kg/m2 162.56 cm 97.5 [degF] 22 /min 74 /min 98 % 98 % 141 mm[Hg] 78 mm[Hg] Gemma Knott [facility] 3 11:33:09 Date Recorded Body height Body mass index (BMI) Body weight Heart rate Systolic blood pressure Diastolic blood pressure Provider Name and Address Organization Details Last Updated DateTime 4 162.56 cm 41.7 kg/m2 869254. 95 g 79 /min 134 mm[Hg] 85 mm[Hg] Clarissa Bustillos MD [address] [place], [address], [facility] [employer] 4 13:50:47 Social History Question Answer Notes LastModified by Organizat ion Details LastModified Time Tobacco Smoking Status Never Smoker Clarissa Bustillos MD [address] [place], [address], [facility] 03/12/2023 12:05:20 What Is Your Level Of [...] Diagnosis/Indication Diagnosis SNOMED-CT Code Diagnosis ICD10 Code [id number] Clarissa [facility]ustillos [facility] [address] [place] [address] 03/12/2023 11:25:18 03/12/2023 12:10:57 Microcytic anemia 289084187 D50.9 [id number] Clarissa Bustillos MD [facility] [address] [place] [address] 06/25/2023 10:56:22 06/25/2023 16:24:16 Onychomycosis of toenails 921728417 B35.1 Diabetes m ellitus screening 882069211 Z13.1 Microcytic anemia 558260 007 D50.9 Endometrium thickened 44 1004512 R93.89 Increased blood pressure 93477873 R03.0 Health Concerns Section Related Observation LastModified [...] varicosities. No claudication. Clarissa Bustillos MD [address] [place], [address], [facility] [employer] 03/12/2023 12:16:05 06/25/2023 text/html HPI Notes: Stacy [...] and lipodermatosclerosis ). Clarissa Bustillos MD [address] [place], [address], [facility] [employer] 06/25/2023 14:03:12 OBGyn Episode No OBEpisode recorded.
--- NOTE | 2024-01-22 12:28 | W.ANESCHARGE ---
Anesthesia Charges Start Date/Time Anesthesia Start Date: 01/22/24 Anesthesia Start Time: 12:37 Stop Date/Time Anesthesia Stop Date: 01/22/24 Anesthesia Stop Time: 13:15
--- NOTE | 2024-01-22 13:18 | W.ANESCHARGE ---
Anesthesia Charges Start Date/Time Anesthesia Start Date: 01/22/24 Anesthesia Start Time: 12:37 Stop Date/Time Anesthesia Stop Date: 01/22/24 Anesthesia Stop Time: 13:15
== END 2024-01-22 11:26 | disposition home or self-care (01) ==
LOC: OP CLINIC 11:26
PROVIDERS: PCP Family Medicine; Visit Provider Surgery
DX: Z12.11 Encounter for screening for malignant neoplasm of colon (principal); D12.3 Benign neoplasm of transverse colon; K57.30 Diverticulosis of large intestine without perforation or abscess without bleeding
CPT/HCPCS: 00811; 45381; 45385; 88305; T1013; J2704